=== PATIENT | female | born 1995 | race Hispanic/Latino ===

== ENCOUNTER 2019-04-18 22:23 | Emergency (ER) | payer MEDICAID ==
[2019-04-18 22:35] VITALS: BP 121/68
[2019-04-19] MEDS: ACETAMINOPHEN W/CODEINE 300-30 MG TAB PO ONE (00:19)
[2019-04-19] MEDS: IBUPROFEN 800 MG TAB PO ONE (00:19)
[2019-04-19] MEDS: TETANUS,DIPH,PERTUSS(ACELL) VACCINE 0.5 ML SYRINGE IM ONE (00:20)
[2019-04-19] MEDS: dexAMETHasone 20 MG/5 ML VIAL IM ONE (00:21)
[2019-04-19] MEDS: LIDOCAINE-MPF (1%) 10 MG/1 ML VIAL 5 ML INFILTRATI ONE (00:28)
--- NOTE | 2019-04-19 03:24 | Emergency Department Report ---
ED General Adult HPI - General Chief complaint: Wound/Laceration Stated complaint: HAND LAC Source: patient Mode of arrival: Ambulatory Limitations: No Limitations - History of Present Illness Initial comments: Patient is a 23-year-old white female with a history of depression and anxiety who presents to the ED with complaint of acute onset persistent painful bleeding left palm laceration after she accidentally cut her left palm while cutting some food about 2 hours ago. Patient also complains of sore throat and hoarseness for the last 12 hours. Patient denies fever, chills, nausea, vomiting, numbness and tingling or weakness of the left palm, cough, chest pain or shortness of breath. MD Complaint: left palm laceration; sore throat and hoarseness -: Sudden, hour(s) (2) Location: mouth, upper extremity (left palm) Radiation: non-radiation Severity scale (0 -10): 7 Quality: aching, sharp Consistency: constant Improves with: none Worsens with: none Associated Symptoms: denies other symptoms, malaise, other (sore throat). denies: confusion, chest pain, cough, diaphoresis, fever/chills, headaches, loss of appetite, nausea/vomiting, rash, seizure, shortness of breath, syncope, weakness Treatments Prior to Arrival: none - Related Data Previous Rx's Medication Instructions Recorded Last Taken Type Ibuprofen [Motrin] 800 mg PO Q8HR PRN #24 tablet 04/19/19 Unknown Rx Sulfamethoxazole/Trimethoprim 1 each PO Q12H #20 tablet 04/19/19 Unknown Rx [Bactrim DS TAB] methylPREDNISolone [Medrol 4MG 4 mg PO DAILY #21 tab.ds.pk 04/19/19 Unknown Rx DOSEPAK (21 tabs)] Allergies Allergy/AdvReac Type Severity Reaction Status Date / Time No Known Allergies Allergy Unverified 04/18/19 22:35 ED Review of Systems ROS: Stated complaint: HAND LAC Other details as noted in HPI Constitutional: denies: chills, fever Eyes: denies: eye pain, eye discharge, vision change ENT: throat pain, other (Hoarseness). denies: ear pain Respiratory: denies: cough, shortness of breath, wheezing Cardiovascular: denies: chest pain, palpitations Endocrine: no symptoms reported Gastrointestinal: denies: abdominal pain, nausea, diarrhea Genitourinary: denies: urgency, dysuria, discharge Musculoskeletal: arthralgia (left palm pain due to bleeding laceration), myalgia. denies: back pain, joint swelling Skin: other (bleeding left palm laceration with pain). denies: rash, lesions Neurological: denies: headache, weakness, paresthesias Psychiatric: denies: anxiety, depression Hematological/Lymphatic: denies: easy bleeding, easy bruising ED Past Medical Hx - Past Medical History Previous Medical History?: Yes Hx Psychiatric Treatment: Yes (Depression) - Surgical History Past Surgical History?: No - Social History Smoking Status: Never Smoker Substance Use Type: None - Medications Home Medications: Home Medications Medication Instructions Recorded Confirmed Last Taken Type Ibuprofen [Motrin] 800 mg PO Q8HR PRN #24 tablet 04/19/19 Unknown Rx Sulfamethoxazole/Trimethoprim 1 each PO Q12H #20 tablet 04/19/19 Unknown Rx [Bactrim DS TAB] methylPREDNISolone [Medrol 4MG 4 mg PO DAILY #21 tab.ds.pk 04/19/19 Unknown Rx DOSEPAK (21 tabs)] ED Physical Exam - General Limitations: No Limitations General appearance: alert, in no apparent distress - Head Head exam: Present: atraumatic, normocephalic, normal inspection - Eye Eye exam: Present: normal appearance, PERRL, EOMI Pupils: Present: normal accommodation - ENT ENT exam: Present: normal exam, normal orophraynx, mucous membranes moist, TM's normal bilaterally, normal external ear exam - Neck Neck exam: Present: normal inspection, full ROM. Absent: tenderness, lymphadenopathy - Respiratory Respiratory exam: Present: normal lung sounds bilaterally. Absent: respiratory distress, wheezes, rales, chest wall tenderness, accessory muscle use, decreased breath sounds, prolonged expiratory - Cardiovascular Cardiovascular Exam: Present: regular rate, normal rhythm, normal heart sounds. Absent: systolic murmur, diastolic murmur, rubs, gallop - GI/Abdominal GI/Abdominal exam: Present: soft, normal bowel sounds. Absent: tenderness, guarding, hyperactive bowel sounds, hypoactive bowel sounds, organomegaly - Extremities Exam Extremities exam: Present: normal inspection, full ROM, tenderness (palpable left palm tenderness due to bleeding 3 cm laceration), normal capillary refill - Back Exam Back exam: Present: normal inspection, full ROM. Absent: tenderness, muscle spasm, paraspinal tenderness - Neurological Exam Neurological exam: Present: alert, oriented X3, CN II-XII intact, normal gait, reflexes normal - Psychiatric Psychiatric exam: Present: normal affect, normal mood - Skin Skin exam: Present: warm, dry, intact, normal color, other (Bleeding left palm 3 cm laceration). Absent: rash ED Course Vital Signs 04/18/19 22:32 Temperature 98.7 F Pulse Rate 80 Respiratory 16 Rate Blood Pressure 121/68 O2 Sat by Pulse 94 Oximetry - Laceration /Wound Repair Left Palm Hand Wound Location: upper extremity (left palm) Wound Length (cm): 3 Wound's Depth, Shape: superficial, linear Wound Explored: contaminated Irrigated w/ Saline (ccs): 50 Betadine Prep?: Yes Anesthesia: 1% Lidocaine Volume Anesthetic (ccs): 5 Wound Debrided: extensive Wound Repaired With: sutures Suture Size/Type: 4:0, proline Number of Sutures: 7 Layer Closure?: No Sterile Dressing Applied?: Yes Progress: Patient tolerated the procedure well. Patient discharged home on medications and advised to follow-up with her primary care physician in 7-10 days for reevaluation. Patient was advised to return to the ED immediately if symptoms get worse. Patient was advised to the ED or to her PCP in 12-14 days for suture removal. ED Medical Decision Making - Medical Decision Making This is a 23-year-old female who presented to the ED with persistent pain and bleeding left thumb laceration after she accidentally cut her left palm while cutting some food at home about 2 hours ago. In the ED, patient is alert and oriented 3 and is not in distress. Patient was to develop any ED and the left palm laceration was cleaned thoroughly and sutured per protocol. Patient tolerated the procedure well and was discharged home on oral antibiotics for prophylactic purposes, and medications as needed. Patient was advised to return to the ED immediately if symptoms get worse or follow-up with her primary care physician in 7-10 days for reevaluation. Patient was otherwise advised to return to the ED or to her primary care physician in 12-14 days for suture removal. - Differential Diagnosis Left palm laceration; Puncture wound; Viral pharyngitis Critical care attestation.: If time is entered above; I have spent that time in minutes in the direct care of this critically ill patient, excluding procedure time. ED Disposition Clinical Impression: Acute viral pharyngitis Laceration of deep palmar arch of left hand Qualifiers: Encounter type: initial encounter Qualified Code(s): S65.312A - Laceration of deep palmar arch of left hand, initial encounter Disposition: TO HOME OR SELFCARE Is pt being admited?: No Does the pt Need Aspirin: No Condition: Stable Instructions: Laceration (ED), Suture Care (ED), Pharyngitis (ED) Additional Instructions: Take medications with food, drink plenty of fluids and follow up with your primary care physician in 7-10 days for reevaluation. Return to the ED immediately if symptoms get worse. Otherwise return to the ED in 12-14 days for suture removal. Prescriptions: Sulfamethoxazole/Trimethoprim [Bactrim DS TAB] 1 each PO Q12H #20 tablet methylPREDNISolone [Medrol 4MG DOSEPAK (21 tabs)] 4 mg PO DAILY #21 tab.ds.pk Ibuprofen [Motrin] 800 mg PO Q8HR PRN #24 tablet PRN Reason: Pain , Severe (7-10) Referrals: [facility] [Outside] - 7-10 days Time of Disposition: 03:33 Print Language: [place]LAND[place]
== END 2019-04-19 03:40 | disposition home or self-care (01) ==
LOC: ED 22:23
DX: S65.3 Injury of deep palmar arch (principal); J02.8 Acute pharyngitis due to other specified organisms; F32.9 Major depressive disorder, single episode, unspecified; Z79.1 Long term (current) use of non-steroidal anti-inflammatories (NSAID); Z79.899 Other long term (current) drug therapy; W45.8XXA Other foreign body or object entering through skin, initial encounter; Y93.89 Activity, other specified; Y92.89 Other specified places as the place of occurrence of the external cause; Y99.8 Other external cause status
CPT/HCPCS: 12002; 90471; 90715; 96372; 99282; J1100

== ENCOUNTER 2019-05-03 09:58 | Emergency (ER) | payer MEDICAID ==
[2019-05-03 10:05] VITALS: BP 133/70
--- NOTE | 2019-05-03 10:13 | Emergency Department Report ---
Suture/Staple Removal - [facility] Chief Complaint: Laceration/Recheck/Suture Stated Complaint: STICHES REMOVE Time Seen by Provider: 05/03/19 10:10 When Sutures or Tony Placed: 8-10 Days Ago Wound Location: left hand pain ED Review of Systems ROS: Stated complaint: STICHES REMOVE Other details as noted in HPI Constitutional: denies: chills, fever Eyes: denies: eye pain, eye discharge, vision change ENT: denies: ear pain, throat pain Respiratory: denies: cough, shortness of breath, wheezing Cardiovascular: denies: chest pain, palpitations Endocrine: no symptoms reported Gastrointestinal: denies: abdominal pain, nausea, diarrhea Genitourinary: denies: urgency, dysuria, discharge Musculoskeletal: denies: back pain, joint swelling, arthralgia Skin: denies: rash, lesions Neurological: denies: headache, weakness, paresthesias Psychiatric: denies: anxiety, depression Hematological/Lymphatic: denies: easy bleeding, easy bruising ED Past Medical Hx - Past Medical History Previous Medical History?: Yes Hx Psychiatric Treatment: Yes (Depression) - Surgical History Past Surgical History?: No - Social History Smoking Status: Never Smoker Substance Use Type: None - Medications Home Medications: Home Medications Medication Instructions Recorded Confirmed Last Taken Type Ibuprofen [Motrin] 800 mg PO Q8HR PRN #24 tablet 04/19/19 Unknown Rx Sulfamethoxazole/Trimethoprim 1 each PO Q12H #20 tablet 04/19/19 Unknown Rx [Bactrim DS TAB] methylPREDNISolone [Medrol 4MG 4 mg PO DAILY #21 tab.ds.pk 04/19/19 Unknown Rx DOSEPAK (21 tabs)] Suture Removal Exam - Exam General: Vital signs noted. No distress. Alert and acting appropriately. Wound: No Pathologic Erythema, No Tenderness, No Drainage, No Pus, No Wound Dehiscence Other Systems: All other systems reviewed and are unremarkable. ED Course Vital Signs 05/03/19 10:04 Temperature 98.5 F Pulse Rate 99 H Respiratory 16 Rate Blood Pressure 133/70 O2 Sat by Pulse 97 Oximetry - Reevaluation(s) Reevaluation #1: 05/03/19 10:30 Patient is speaking in full sentences with no signs of distress noted. ED Recheck MDM - Medical Decision Making Total of 7 sutures has been removed. Patient tolerated well. Well healing. Patient was instructed to Follow-up with a primary care doctor in 3-5 days or if symptoms worsen and continue return to emergency room as soon as possible. At time of discharge, the patient does not seem toxic or ill in appearance. No acute signs of distress noted. Patient agrees to discharge treatment plan of care. No further questions noted by the patient. Critical care attestation.: If time is entered above; I have spent that time in minutes in the direct care of this critically ill patient, excluding procedure time. ED Disposition Clinical Impression: Visit for suture removal Disposition: - TO HOME OR SELFCARE Is pt being admited?: No Does the pt Need Aspirin: No Condition: Stable Instructions: Suture Removal (ED) Additional Instructions: Follow-up with a primary care doctor in 3-5 days or if symptoms worsen and continue return to emergency room as soon as possible. Referrals: [facility]IMARY [facility] [Referring] - 3-5 Days MEGAN KRAFT MD [Staff Physician] - 3-5 Days [facility] [Outside] - 3-5 Days Forms: Work/School Release Form(ED)
== END 2019-05-03 11:07 | disposition home or self-care (01) ==
LOC: ED 09:58
DX: T14.8XXD Other injury of unspecified body region, subsequent encounter (principal); Z48.02 Encounter for removal of sutures